=== PATIENT | female | born 1945 | race Caucasian/White ===

== ENCOUNTER 2018-03-30 17:05 | Emergency (ER) | payer OTHER ==
[~2018-03-30] VITALS: Ht 167.6 cm; Wt 75.4 kg
[2018-03-30 17:16] VITALS: BP 170/110
--- NOTE | 2018-03-30 18:15 | NUR ---
MICHEAL DISPATCH CONTACTED BY JAME LOPEZ.
== END 2018-03-30 20:35 | disposition home or self-care (01) ==
LOC: ED 19:30
DX: S40.022A Contusion of left upper arm, initial encounter (principal); Z85.3 Personal history of malignant neoplasm of breast; Y04.8XXA Assault by other bodily force, initial encounter; Y93.89 Activity, other specified; Y92.009 Unspecified place in unspecified non-institutional (private) residence as the place of occurrence of the external cause; Y99.8 Other external cause status
CPT/HCPCS: 99283

== ENCOUNTER → 2018-06-17 | Outpatient (CLI) | payer OTHER ==
[~2018-06-17] MED LIST: FENTANYL PF 100 MCG/2ML ONE; FLUMAZENIL 0.1 MG/1 ML, 5ML ONE; MIDAZOLAM 1 MG/ML, 5ML ONE; NALOXONE 1 MG/ML, 2ML ONE
== END | disposition home or self-care (01) ==
LOC: RAD 12:21
PROVIDERS: ATTEND Family Medicine
DX: S46.912A Strain of unspecified muscle, fascia and tendon at shoulder and upper arm level, left arm, initial encounter (principal); M25.412 Effusion, left shoulder; M25.712 Osteophyte, left shoulder; M62.512 Muscle wasting and atrophy, not elsewhere classified, left shoulder; X58.XXXA Exposure to other specified factors, initial encounter; Y93.89 Activity, other specified; Y92.89 Other specified places as the place of occurrence of the external cause; Y99.8 Other external cause status
CPT/HCPCS: 73221; J2250; J3010; J2310

== ENCOUNTER 2018-10-17 14:51 | Emergency (ER) | payer MEDICARE, OTHER ==
[2018-10-18 09:02] VITALS: BP 167/95
== END 2018-10-18 16:21 | disposition home or self-care (01) ==
LOC: ED 18:27
DX: R45.851 Suicidal ideations (principal); Z13.9 Encounter for screening, unspecified; G89.29 Other chronic pain; M25.512 Pain in left shoulder
CPT/HCPCS: 36415; 73030; 80053; 80307; 85025; 96372; 99284; J1885; J3486

== ENCOUNTER → 2019-06-29 | Outpatient (CLI) | payer MEDICARE ==
[~2019-06-29] MED LIST changes: -FENTANYL PF 100 MCG/2ML ONE; -FLUMAZENIL 0.1 MG/1 ML, 5ML ONE; +FURO-92 PO; +HYDR-3245 PO; +IMIP10TA2 PO; -MIDAZOLAM 1 MG/ML, 5ML ONE; +Meloxicam PO; -NALOXONE 1 MG/ML, 2ML ONE; +POTASSIUM CL PO; +REGADENOSON 0.4 MG/5 ML SYRINGE ONE; +TIZA4CAP PO; +Xanax
== END | disposition home or self-care (01) ==
LOC: CFH 10:33
PROVIDERS: ATTEND Internal Medicine Cardiovascular Disease
DX: I08.8 Other rheumatic multiple valve diseases (principal); I21.29 ST elevation (STEMI) myocardial infarction involving other sites; I11.9 Hypertensive heart disease without heart failure
CPT/HCPCS: 78452; 93017; 93306; A9502; J2785